=== PATIENT | female | born 1980 | race African-American/Black ===

== ENCOUNTER 2020-05-25 22:15 | Emergency (ER) | payer MEDICAID ==
[~2020-05-25] VITALS: Ht 134.6 cm; Wt 113.6 kg
[2020-05-25 22:25] VITALS: BP 160/97; Ht 134.6 cm; Wt 113.6 kg
[2020-05-25] MEDS ORDERED: ALBUTEROL SULF8.5 GM INH (22:27)
[2020-05-25] MEDS ORDERED: TOPROL XL25 MG (22:27)
[2020-05-25] MEDS ORDERED: SYNTHROID75 MCG PO (22:27)
[2020-05-26 00:43] LABS: BASOPHILS 0.4 % (0-2); CALC OSMOLALITY 270 mosm/kg (275-300); CALCIUM 8.4 mg/dL (8.5-10.1); CHLORIDE - SERUM 104 mmol/L (98-107); CREATININE - SERUM 0.9 mg/dL (0.6-1.3); EOSINOPHILS 1.1 % (0-7); GLUCOSE 96 mg/dL (74-106); HEMATOCRIT 40.4 % (36.0-48.0); HEMOGLOBIN 13.2 g/dL (12-16); LYMPHOCYTES 25.9 % (15-50); MCH 29.7 pg (26.0-34.0); MCHC 32.7 g/dL (31.0-37.0); MCV 90.8 fL (80.0-100.0); MEAN PLATELET VOLUME 10.3 fL (7.4-10.4); MONOCYTES 8.3 % (2-11); NEUTROPHILS 64.3 % (40-80); PLATELET COUNT 210 10x3/uL (130-400); POTASSIUM - SERUM 3.6 mmol/L (3.5-5.1); RBC 4.45 10x6/uL (4.00-5.40); RDW 12.7 % (11.5-14.5); SODIUM 136 mmol/L (136-145); UREA NITROGEN 9 mg/dL (7-18); WBC 5.4 10x3/uL (4.8-10.8); eGFR NON AFRICAN AMERICAN 73 mL/min (90-120)
[2020-05-26 00:44] LABS: INR 1.01 (0.85-1.17); PROTIME 13.2 SECONDS (11.6-15.0)
[2020-05-26 00:45] LABS: APTT 30.8 SECONDS (22.8-39.4)
[2020-05-26 00:57] LABS: BILIRUBIN NEGATIVE (NEGATIVE); KETONE NEGATIVE (NEGATIVE); NITRITE NEGATIVE (NEGATIVE); UROBILINOGEN NORMAL mg/dL (< 2)
[2020-05-26 00:58] LABS: WHITE CELLS - URINE 0-5 HPF (0-4)
[2020-05-26 00:59] LABS: BACTERIA FEW /HPF (NONE SEEN); EPITHELIAL CELLS 0-5 /hpf (0-5)
[2020-05-26] MEDS ORDERED: KEFLEX500 MG PO (01:00)
[2020-05-26 01:05] LABS: ALBUMIN 2.9 g/dL (3.4-5.0); ALKALINE PHOSPHATASE 68 U/L (30-120); ALT (SGPT) 19 U/L (10-68); BILIRUBIN - TOTAL 0.08 mg/dL (0.2-1.3); CKMB 0.5 U/L (0.0-3.6); CREATINE KINASE 72 UL (21-215); MAGNESIUM - SERUM 1.9 mg/dL (1.8-2.4); PRO BNP 65 pg/mL (0-125); PROTEIN - SERUM 6.7 g/dL (6.4-8.2); TROPONIN-I < 0.017 ng/mL (0.000-0.060)
== END 2020-05-26 01:41 | disposition home or self-care (01) ==
LOC: D.ER 22:15
PROVIDERS: Emergency Medicine
DX: J06.9 Acute upper respiratory infection, unspecified (principal); R68.89 Other general symptoms and signs; I10 Essential (primary) hypertension; M54.16 Radiculopathy, lumbar region; R60.9 Edema, unspecified; N39.0 Urinary tract infection, site not specified; J45.909 Unspecified asthma, uncomplicated

== ENCOUNTER 2020-12-03 13:02 | Emergency (ER) | payer MEDICAID ==
[~2020-12-03] VITALS: Ht 144.8 cm; Wt 108.6 kg
[~2020-12-03 13:02] MED LIST: ALBUTEROL SULF8.5 GM INH; KEFLEX500 MG PO; SYNTHROID75 MCG PO; TOPROL XL25 MG
[2020-12-03 13:12] VITALS: Ht 144.8 cm; Wt 108.6 kg
[2020-12-03 14:24] LABS: CALC OSMOLALITY 279 mosm/kg (275-300); CALCIUM 8.8 mg/dL (8.5-10.1); CARBON DIOXIDE 28.7 mmol/L (21.0-32.0); CHLORIDE - SERUM 106 mmol/L (98-107); CREATININE - SERUM 0.7 mg/dL (0.6-1.3); GLUCOSE 99 mg/dL (74-106); POTASSIUM - SERUM 3.6 mmol/L (3.5-5.1); SODIUM 140 mmol/L (136-145); UREA NITROGEN 14 mg/dL (7-18); eGFR NON AFRICAN AMERICAN > 90 mL/min (90-120)
[2020-12-03 14:30] LABS: ALBUMIN 2.7 g/dL (3.4-5.0); ALKALINE PHOSPHATASE 66 U/L (30-120); ALT (SGPT) 20 U/L (10-68); BILIRUBIN - TOTAL 0.11 mg/dL (0.2-1.3); PROTEIN - SERUM 6.3 g/dL (6.4-8.2)
[2020-12-03 14:40] LABS: HEMOGLOBIN 12.9 g/dL (12-16); LYMPHOCYTE ABS# 1.11 10x3/uL (1.18-3.74); MCH 29.6 pg (26.0-34.0); MCHC 33.1 g/dL (31.0-37.0); MCV 89.4 fL (80.0-100.0); MEAN PLATELET VOLUME 10.6 fL (7.4-10.4); NEUTROPHIL ABS# 4.31 10x3/uL (1.56-6.13); PLATELET COUNT 184 10x3/uL (130-400); RBC 4.36 10x6/uL (4.00-5.40); RDW 13.7 % (11.5-14.5)
[2020-12-03 14:58] LABS: BILIRUBIN NEGATIVE (NEGATIVE); KETONE NEGATIVE (NEGATIVE); NITRITE NEGATIVE (NEGATIVE); SQUAMOUS EPITHELIAL 0-5 HPF (0-4); UROBILINOGEN NORMAL mg/dL (< 2); WHITE CELLS - URINE 0-5 HPF (0-4)
[2020-12-03] MEDS ORDERED: ALBUTEROL SULF8.5 GM INH (15:07)
[2020-12-03] MEDS ORDERED: MEDROL DOSE PACK4 MG PO (15:07)
[2020-12-03] MEDS ORDERED: ZPAK PO (15:07)
[2020-12-03 15:18] VITALS: BP 167/95
[2020-12-03 15:43] LABS: LYMPHOCYTES 26 % (15-50); MONOCYTES 7 % (2-11); NEUTROPHILS 66 % (40-80); PLATELET ESTIMATE NORMAL
== END 2020-12-03 15:51 | disposition home or self-care (01) ==
LOC: D.ER 13:02
PROVIDERS: Emergency Medicine
DX: J06.9 Acute upper respiratory infection, unspecified (principal); R05 Cough; E66.9 Obesity, unspecified; I10 Essential (primary) hypertension; Z72.0 Tobacco use